=== PATIENT | female | born 1965 | race Two or more races ===

== ENCOUNTER 2018-01-09 08:57 | Outpatient (CLI) | payer OTHER | END 2018-01-09 09:07 | disposition home or self-care (01) | LOC: RAD 08:57 | DX: Z01.89 Encounter for other specified special examinations (principal); J45.909 Unspecified asthma, uncomplicated ==

== ENCOUNTER 2019-04-14 10:36 | Outpatient (CLI) | payer OTHER | END 2019-04-14 10:40 | disposition home or self-care (01) | LOC: MAMO-SONO 10:36 | DX: Z12.31 Encounter for screening mammogram for malignant neoplasm of breast (principal); R10.0 Acute abdomen; R10.2 Pelvic and perineal pain; N60.11 Diffuse cystic mastopathy of right breast; N60.12 Diffuse cystic mastopathy of left breast ==

== ENCOUNTER 2020-09-11 09:03 | Outpatient (CLI) | payer OTHER | END 2020-09-11 09:06 | disposition home or self-care (01) | LOC: MAMO-SONO 09:03 | PROVIDERS: ATTEND Otolaryngology Otolaryngology/Facial Plastic Surgery | DX: Z12.31 Encounter for screening mammogram for malignant neoplasm of breast (principal); N60.11 Diffuse cystic mastopathy of right breast; N60.12 Diffuse cystic mastopathy of left breast; R10.2 Pelvic and perineal pain; N64.59 Other signs and symptoms in breast ==

== ENCOUNTER 2022-02-21 08:32 | Outpatient (CLI) | payer OTHER | END 2022-02-21 08:41 | disposition home or self-care (01) | LOC: MAMO-SONO 08:32 | PROVIDERS: ATTEND Obstetrics & Gynecology | DX: N60.11 Diffuse cystic mastopathy of right breast (principal); N60.12 Diffuse cystic mastopathy of left breast ==

== ENCOUNTER 2024-12-22 16:15 | Outpatient (CLI) | payer OTHER | END 2024-12-22 16:16 | disposition home or self-care (01) | LOC: MAMO-SONO 16:15 | PROVIDERS: ATTEND Obstetrics & Gynecology | DX: N60.11 Diffuse cystic mastopathy of right breast (principal); N60.12 Diffuse cystic mastopathy of left breast; Z12.31 Encounter for screening mammogram for malignant neoplasm of breast ==